=== PATIENT | female | born 1945 | race Two or more races ===

== ENCOUNTER 2021-04-05 10:18 | Outpatient (CLI) | payer OTHER | END 2021-04-05 10:29 | disposition home or self-care (01) | LOC: SONOGRAMA 10:18 | PROVIDERS: ATTEND Obstetrics & Gynecology Gynecology | DX: N84.0 Polyp of corpus uteri (principal); N60.11 Diffuse cystic mastopathy of right breast; N60.12 Diffuse cystic mastopathy of left breast; D25.1 Intramural leiomyoma of uterus; N95.2 Postmenopausal atrophic vaginitis ==